=== PATIENT | female | born 1960 | race Caucasian/White ===

== ENCOUNTER → 2016-11-08 | Outpatient (CLI) | payer MEDICARE, BC ==
[~2016-11-08] MED LIST: ALLEGRA PO; AMBIEN PO; ASPIRIN PO; ASPIRIN81 M2 PO; BACTRIM DS TABL1 TA1 PO; BENADRYL25 MG PO; CENTRUM PO; CLEOCIN HCL300 M1 PO; COMPAZINE10 MG PR; CYMBALTA PO; DICYCLOMINE HCL20 MG PO; DULOXETINE HCL60 MG PO; ELOCON OINT45 GM EXT; FUROSEMIDE40 MG PO; HUMALOG KW100 UNIT/1 SUBQ; HUMALOG KW200 UNIT/1; HUMALOG100 U/ML SUBQ; HYDROCHLOROTHIA25 MG PO; HYDROXYZINE HCL25 M1 PO; HYDROXYZINE HCL50 MG PO; IBUPROFEN PO; IBUPROFEN800 MG PO; K-DUR20 ME1 PO; KCL PO; KEFLEX500 M2 PO; KLONOPIN PO; LANTUS SOL100 UNIT/1 SUBQ; LANTUS100 U/ML; LANTUS100 U/ML SUBQ; LASIX PO; LEVO-T175 MCG PO; LEVOTHYROXINE150 MCG PO; LISINOPRIL PO; LISINOPRIL10 MG PO; LYRICA PO; LYRICA75 MG PO; NEXIUM PO; ONE DAILY FOR1 EAC1 PO; PANTOPRAZOLE SO40 MG PO; PATIENT'S PHARMACY; PEPCID AC20 M2 PO; PERCOCET5/325 PO; PREDNISONE PO; PROTONIX PO; SIMVASTATIN40 MG PO; SUBOXONE 8 MG-1 EAC1 SL; SYNTHROID PO; TOPAMAX; TOPIRAMATE50 MG PO; VIBRAMYCIN100 M1 PO; VITAMIN D 2 PO; WELLBUTRIN PO; ZOCOR PO; ZOFRANODT PO
--- NOTE | ~2016-11-08 | EKG ---
PATIENT: YESY TREJO UNIT #: [id number] Ventricular Rate: 93 BPM Atrial Rate: 93 BPM P-R Interval: 146 ms QRS Duration: 98 ms Q-T Interval: 386 ms QTC Calculation(Bezet): 479 ms P [place]: 56 degrees Calculated R [place]: 58 degrees Calculated T [place]: 47 degrees Diagnosis Line: Normal sinus rhythm Diagnosis Line: Normal ECG Diagnosis Line: No previous ECGs available Diagnosis Line: Confirmed by GABRIELLA ANDERSON MD ([id number]) on 11/10/2016 Diagnosis Line: 4:22:35 PM INTERPRETING MD: JUSTIN PRATT
--- NOTE | ~2016-11-08 | CR97 ---
[facility] A Service of [facility] & [facility] RADIOLOGY TEXT RESULTS PATIENT: YESY TREJO LOCATION: [facility] : 58 UNIT #: [id number] AGE: [address]: Cricket Paige III, MD SEX: F ORDER DR: [id number] [facility] [address] [facility]. [place], [place] [address] [id number] O MR#: [id number] Acc #: [id number] NAME: YESY TREJO : 1960 SEX: F STUDY DATE/TIME: 11/08/2016 8:28 UNIT: [facility] ROOM: STUDY DESCRIPTION: CR Esophagram Attending Physician: Cricket Paige III, M.D. Referring Physician: Cricket Paige III, M.D. Ordering Physician: Cricket Paige III, M.D. Primary Care Physician: Joo Wong M.D. MEDICAL IMAGING REPORT This report is preliminary unless electronic signature is present EXAM Barium esophagram. HISTORY Obesity. Preop Lap-Band. FINDINGS Barium was used orally and under fluoroscopic control swallowing was normal. Esophagus is of normal course, caliber, mucosal pattern and distensibility. There is no hiatal hernia. CONCLUSION Normal. Dictated by... Eladio Ruiz M.D. THIS IS AN ELECTRONICALLY VERIFIED REPORT Eladio Ruiz M.D. at 11/10/2016 9:17 AM SHARMAINE/marielos TD: 11/08/2016 16:12 JOB #: [id number] MEDICAL IMAGING REPORT Page 1 of 1 COPY
--- NOTE | ~2016-11-08 | CR63 ---
[facility] A Service of [facility] RADIOLOGY TEXT RESULTS PATIENT: YESY TREJO LOCATION: [facility] : 58 UNIT #: [id number] AGE: [address]: Cricket Paige III, MD SEX: F ORDER DR: [id number] [facility] [address] [facility]. [place], [place] [address] [id number] O MR#: [id number] Acc #: [id number] NAME: YESY TREJO : 1960 SEX: F STUDY DATE/TIME: 11/08/2016 7:48 UNIT: [facility] ROOM: STUDY DESCRIPTION: CR Chest 2 View Attending Physician: Cricket Paige III, M.D. Referring Physician: Cricket Paige III, M.D. Ordering Physician: Cricket Paige III, M.D. Primary Care Physician: Joo Wong M.D. MEDICAL IMAGING REPORT This report is preliminary unless electronic signature is present EXAM Chest, 11/08/2016 HISTORY 56-year-old woman preop clearance for laparoscopic adjustable gastric band placement and possible paraesophageal hernia repair. Morbid obesity. COMPARISON 07/12/2009 FINDINGS Two-view chest demonstrates normal cardiac size and configuration. Hilar structures and mediastinal contours are preserved. Bilateral lungs are expanded and clear. IMPRESSION Negative chest. Large body habitus. Dictated by... Carlos Enrique Street M.D. THIS IS AN ELECTRONICALLY VERIFIED REPORT Carlos Enrique Street M.D. at 11/08/2016 11:15 AM Matheus TD: 11/08/2016 10:26 JOB #: [id number] MEDICAL IMAGING REPORT Page 1 of 1 COPY
[2016-11-08 09:08] LABS: HEMATOCRIT 33.2 % (35.0-45.0); HEMOGLOBIN 11.1 gm/dL (12.0-16.0); MEAN CELL VOLUME 88.5 FL (83-96); MEAN CORPUSCULAR HEMOGLOBIN 29.5 PG (28-34); MEAN CORPUSCULAR HGB CONC 33.3 g/dL (30-36); MEAN PLATELET VOLUME 8.4 FL (6.5-11.5); RED BLOOD COUNT 3.75 X10e (3.90-5.30); WHITE BLOOD COUNT 7.7 X10e3 (4.0-10.5)
[2016-11-08 09:55] LABS: BILIRUBIN,TOTAL 0.5 mg/dL (0.2-2.0); BUN/CREATININE RATIO 23.33; CALCIUM SERUM 9.3 mg/dL (8.4-10.2); CREATININE SERUM 1.2 mg/dL (0.6-1.4); GLOM FILT RATE Estimated 50.1 mL/min (>60); POTASSIUM 4.5 mmol/L (3.5-5.1); PROTEIN TOTAL SERUM 6.7 g/dL (6.0-8.3)
== END | disposition home or self-care (01) ==
LOC: CRAD 07:33 → CAMB 08:30
PROVIDERS: Surgery
DX: Z01.818 Encounter for other preprocedural examination (principal); E66.01 Morbid (severe) obesity due to excess calories
CPT/HCPCS: 36415; 71020; 74220; 80053; 80061; 84443; 85027; 93005

== ENCOUNTER → 2016-11-20 | Day surgery (SDC) | payer MEDICARE, BC ==
--- NOTE | ~2016-11-20 | CR7 ---
[facility] A Service of [facility] RADIOLOGY TEXT RESULTS PATIENT: YESY TREJO LOCATION: [facility] : 58 UNIT #: [id number] AGE: [address]: Cricket Paige III, MD SEX: F ORDER DR: [id number] [facility] [address] [facility]. [place], [place] [address] [id number] O MR#: [id number] Acc #: [id number] NAME: YESY TREJO : 1960 SEX: F STUDY DATE/TIME: 11/20/2016 10:11 UNIT: [facility] ROOM: STUDY DESCRIPTION: CR Abdomen Single AP View Attending Physician: Cricket Paige III, M.D. Referring Physician: Cricket Paige III, M.D. Ordering Physician: Cricket Paige III, M.D. Primary Care Physician: Joo Wong M.D. MEDICAL IMAGING REPORT This report is preliminary unless electronic signature is present EXAMINATION AP abdomen. DATE 11/20/2016 HISTORY Postop laparoscopic gastric band placement today. COMPARISON Acute abdominal series, 11/01/2013. FINDINGS Gastric band device has been placed, located at the expected location of the esophagogastric junction. The phi angle is approximately 56.3 degrees. Insufflation port is located just to the right of midline in the hhm-lo-rlpkj abdomen. No gross free intraperitoneal air is identified. Mild colonic stool burden with nonobstructive bowel gas pattern. Cholecystectomy clips in place. Mild linear subsegmental atelectasis in the right base. IMPRESSION Satisfactory postoperative appearance status post laparoscopic gastric band placement with phi angle of approximately 56.3 degrees. Dictated by... Domonique Arias M.D. THIS IS AN ELECTRONICALLY VERIFIED REPORT Domonique Arias M.D. at 11/21/2016 8:35 AM BRIT/bharat [facility] A Service of [facility] RADIOLOGY TEXT RESULTS PATIENT: YESY TREJO LOCATION: [facility] #: [id number] : 58 UNIT #: [id number] AGE: [address]: Cricket Paige III, MD SEX: F ORDER DR: TD: 11/20/2016 12:43 JOB #: [id number] MEDICAL IMAGING REPORT Page 1 of 1 COPY
--- NOTE | ~2016-11-20 | OR ---
Unit #: [id number] #: [id number] Patient: YESY TREJO [id number] [facility] [address] [facility]. [place], [place] [address] [id number] O MR#: [id number] NAME: YESY TREJO ROOM: Date of Procedure: 11/20/2016 Admission Date: 11/20/2016 Surgeon: Cricket Paige III, M.D. : 1960 Attending Physician: Cricket Paige III, M.D. Referring Physician: Cricket Paige III, M.D. Primary Care Physician: Joo Wong M.D. OPERATIVE REPORT PREOPERATIVE DIAGNOSIS Chronic morbid obesity. POSTOPERATIVE DIAGNOSIS Chronic morbid obesity. SECONDARY DIAGNOSIS Anterior paraesophageal hernia. PROCEDURES PERFORMED Laparoscopic adjustable gastric banding (AP standard with low-profile port) and laparoscopic paraesophageal hernia repair. TRACK CAR OPERATOR Thanh Howard M.D. SPECIMENS None. COMPLICATIONS None apparent. ESTIMATED BLOOD LOSS Minimal. ANESTHESIA General endotracheal tube anesthesia. INDICATIONS FOR PROCEDURE This is a 56-year-old lady, who has chronic morbid obesity with a BMI of 52 and associated comorbidities of sleep apnea and diabetes. She has been through the bariatric program at [facility] and understands the risks and benefits of the procedure. DESCRIPTION OF PROCEDURE After consent was obtained, including the risks and benefits of slippage, erosion, port dysfunction, and possible failure of weight loss due to noncompliance, the patient was taken to the operating room and placed in the supine position. General anesthetic was administered and the abdomen was prepped and draped in standard surgical fashion. I began by making a 2 cm incision just above and to the left of the Unit #: [id number] #: [id number] Patient: YESY TREJO umbilicus. I used a Visiport to enter the peritoneal cavity without any difficulty. C02 pneumoperitoneum was then established. Next, I placed a 5 mm port in the right upper quadrant, a 5 mm Mila liver retractor in the subxiphoid region to provide exposure of the gastroesophageal junction. Next, a 10 mm port was placed in the left upper quadrant and a 5 mm port was placed in the left lateral subcostal region. I began by performing an examination of the GE junction to evaluate for a hiatal hernia. We then scored the peritoneal attachments overlying the angle of His. I then opened up the clear space in the gastrohepatic ligament, and then using 2 blunt graspers, I identified the small fat pad crossing over the right crura. I swept the fat anterior to the crura off the crura and using the pars flaccida, I created a retrogastric tunnel where the blunt grasper exited at the angle of His. Once I had made this tunnel safely, I then inserted an Allergan AP band into the abdominal cavity. This adjustable gastric band was then place around the upper part of the stomach and fastened and buckled anteriorly. We then tacked the lateral fundus over the band to the proximal pouch with 2 interrupted 0 Ethibond sutures. I then used a third stitch to imbricate the excess anterior stomach by going from the lesser curvature up towards where the last stitch was placed. We then had excellent hemostasis. I removed the Mila liver retractor. We then removed the port tubing through the initial port incision. The rest of the ports were removed, and the pneumoperitoneum was released. I then left a small tail on the tubing. We then attached the port to the excess band tubing. We placed a piece of Prolene mesh along the back side of the port and used a Prolene stitch to anchor this mesh in place. We then trimmed the excess mesh so that just a small footprint of mesh was in place behind the port. I then inserted the tubing back into the abdominal cavity, and we placed the port into a small pocket that was made just inferior to where our initial port incision was made. The mesh was in direct contact with the fascia, and this will scar in place to hold the port in place. We then injected all the port sites with 0.25% plain Marcaine, and I reapproximated the skin edges with interrupted 4-0 Vicryl subcuticular sutures. Steri-strips were then applied. The patient tolerated the procedure without any problems and returned to the recovery room in stable condition. ADDENDUM After exposure of the GE junction, the patient was noted to have a small to medium size anterior paraesophageal hernia. I scored the phrenoesophageal ligament, reduced the hernia defect and after identifying both the right and left crura, I reapproximated the defect with an interrupted 0 Ethibond djldyp-dk-xpljg suture. I then proceeded with the case as listed above. Dictated by... Cricket Paige III, M.D. VCL/miryam TD: 11/20/2016 16:32 JOB #: [id number] Unit #: [id number] #: [id number] Patient: YESY TREJO OPERATIVE REPORT Page 1 of 1 X Cricket Paige III, MD PROCEDURE OPERATIVE NOTE
== END | disposition home or self-care (01) ==
LOC: CSUR 06:31
DX: E66.01 Morbid (severe) obesity due to excess calories (principal); K44.9 Diaphragmatic hernia without obstruction or gangrene; I25.10 Atherosclerotic heart disease of native coronary artery without angina pectoris; E11.9 Type 2 diabetes mellitus without complications; G47.30 Sleep apnea, unspecified; M17.10 Unilateral primary osteoarthritis, unspecified knee; I10 Essential (primary) hypertension; E89.0 Postprocedural hypothyroidism; K21.9 Gastro-esophageal reflux disease without esophagitis; F41.9 Anxiety disorder, unspecified; E78.00 Pure hypercholesterolemia, unspecified; M81.0 Age-related osteoporosis without current pathological fracture; F32.9 Major depressive disorder, single episode, unspecified; Z68.43 Body mass index [BMI] 50.0-59.9, adult; Z88.1 Allergy status to other antibiotic agents; Z88.2 Allergy status to sulfonamides; Z87.891 Personal history of nicotine dependence; Z79.4 Long term (current) use of insulin; Z79.82 Long term (current) use of aspirin; Z79.1 Long term (current) use of non-steroidal anti-inflammatories (NSAID); Z79.899 Other long term (current) drug therapy; Z98.51 Tubal ligation status; Z90.49 Acquired absence of other specified parts of digestive tract; Z98.890 Other specified postprocedural states
CPT/HCPCS: 74000; 82947; C1781; J0330; J1650; J1885; J2405; J3010

== ENCOUNTER 2016-12-10 11:50 | Inpatient (IN) | payer MEDICARE, BC ==
--- NOTE | ~2016-12-10 | OR ---
Unit #: [id number] #: [id number] Patient: YESY TREJO [id number] [facility]. [place], [place] [address] [id number] I MR#: [id number] NAME: YESY TREJO ROOM: 461 Date of Procedure: 12/11/2016 Admission Date: 12/10/2016 Surgeon: Quinten Sanchez M.D. : 1960 Attending Physician: Law Martinez M.D. Primary Care Physician: Joo Wong M.D. OPERATIVE REPORT PREOPERATIVE DIAGNOSIS Left femur fracture. POSTOPERATIVE DIAGNOSIS Left femur fracture. PROCEDURE PERFORMED Retrograde intramedullary rodding of left femur. MASH FILTER OPERATOR Claus. ANESTHESIA General. ESTIMATED BLOOD LOSS About 150 mL. DESCRIPTION OF PROCEDURE The patient was brought to the operating room, given a general anesthetic, and given 2 g of Ancef. She was then brought back to the operating room and given a general anesthetic. The left leg was prepped and draped in a sterile fashion. We then made an incision over the infrapatellar tendon. The subcutaneous dissected away. The tendon was split longitudinally and a straight awl was used to enter the femur under C-arm control in AP and lateral views. Once it was entered in the appropriate position, a guide june was placed up the femoral neck. We then reamed up to a 14.5, measured the guide june, was found that a 300 mm length was appropriate, so this was positioned and 13 x 300 Cullen femoral nail was placed up the femur. C-arm showed appropriate position of the hardware and the fracture. We used the distal referencing to place 2 locking screws distally under C-arm control. They were 42.5 mm in length and 85 mm in length. We then used freehand technique to place a proximal locking screw 37.5 mm in length. C-arm showed that the locking screws were in good position on AP and lateral both the distal and the proximal. The wounds were then irrigated out. The tendon was repaired with interrupted 0 Vicryl, subcu with 0 Vicryl, and the small incisions for the locking screws were closed with freddy. Sterile dressing was applied. Knee immobilizer positioned and her general anesthetic reversed. Dictated by... Unit #: [id number] #: [id number] Patient: TREJOYESY M.D. DLP/miryam TD: 12/12/2016 08:09 JOB #: [id number] OPERATIVE REPORT Page 1 of 1 X Quinten Sanchez MD PROCEDURE OPERATIVE NOTE
--- NOTE | ~2016-12-10 | BMI ---
[facility] Nutrition Therapy DATE: 12/12/16 Patient: YESY TREJO Physician: THEA Address: [address] [place] [address] Room/Bed: [address] [place] [address], Zip: [place] [address] Admit Date: 12/10/16 Date of : 58 Height: 5 0 Weight: 254 115.5 HIGH BMI NOTE: DX: 56 Y.O. FEMALE ADMITTED FOR (L) FEMUR FRACTURE ANTHROPOMETRICS: 5'0", WT: 254# (115 KG), BMI: 49.6 DIET: CC RECOMMENDATIONS: 1. RECOMMEND TO ADD HH TO CURRENT DIET ORDER ABOVE TO PROMOTE GRADUAL WEIGHT LOSS TOWARDS HEALTHY BMI (19.0-25.0) OR +/-10%IBW RD WILL F/U PER PROTOCOL Respectfully, CA DOHERTY MS, RD, LD Food and Nutritional Services [facility] cc: client file
--- NOTE | ~2016-12-10 | CR106 ---
[facility] A Service of [facility] RADIOLOGY TEXT RESULTS PATIENT: YESY TREJO LOCATION: [facility] 449-01 : 58 UNIT #: [id number] AGE: [address]: Law Martinez MD SEX: F ORDER DR: [id number] [facility] [address] [facility]. [place], [place] [address] [id number] I MR#: [id number] Acc #: [id number] NAME: YESY TREJO : 1960 SEX: F STUDY DATE/TIME: 12/10/2016 12:54 UNIT: [facility] ROOM: [facility] STUDY DESCRIPTION: CR Femur 2 Views Lt Attending Physician: Law Martinez M.D. Ordering Physician: Maximino Quevedo D.O. Primary Care Physician: Joo Wong M.D. MEDICAL IMAGING REPORT This report is preliminary unless electronic signature is present EXAM Left femur, 2 views, 12/10/2016, 1254 hours. CLINICAL HISTORY Patient stool to go the restroom today and felt a pop in femur. Unable to bear weight on left leg. COMPARISON None FINDINGS AP and lateral views of the left femur demonstrate diffuse edema and swelling. There is an oblique nondisplaced fracture in the distal femoral metaphysis which appears acute. This is best seen on the lateral view. There is advanced degenerative change at the left knee. IMPRESSION There is an oblique, acute, nondisplaced, perhaps incomplete fracture of the distal femoral metaphysis. There is edema associated in the overlying soft tissues. There is advanced degenerative change at the left knee. There is no extension into the knee joint. Dictated by... Yoselyn Garrett M.D. THIS IS AN ELECTRONICALLY VERIFIED REPORT Yoselyn Garrett M.D. at 12/11/2016 9:34 AM ALVIN/anneliese TD: 12/10/2016 18:13 JOB #: [id number] [facility] A Service [facility] RADIOLOGY TEXT RESULTS PATIENT: YESY TREJO LOCATION: [facility] 449-01 : 58 UNIT #: [id number] AGE: [address]: Law Martinez MD SEX: F ORDER DR: MEDICAL IMAGING REPORT Page 1 of 1 COPY
--- NOTE | ~2016-12-10 | CR106 ---
[facility] A Service of [facility] RADIOLOGY TEXT RESULTS PATIENT: YESY TREJO LOCATION: [facility] 449 : 58 UNIT #: [id number] AGE: [address]: Law Martinez MD SEX: F ORDER DR: [id number] [facility] [address] [facility] [place] [facility]. [place], [place] [address] [id number] I MR#: [id number] Acc #: [id number] NAME: YESY TREJO : 1960 SEX: F STUDY DATE/TIME: 12/11/2016 16:41 UNIT: B ROOM: [facility] STUDY DESCRIPTION: CR Femur 2 Views Lt Attending Physician: Law Martinez M.D. Ordering Physician: Quinten Sanchez M.D. Primary Care Physician: Joo Wong M.D. MEDICAL IMAGING REPORT This report is preliminary unless electronic signature is present EXAM Left femur series, 12/11/2016 HISTORY Left femur intramedullary rodding. Fluoroscopy time 1 minute 18 seconds. Five fluoroscopic spot images. FINDINGS Five fluoroscopic spot images obtained intraoperatively by Dr. Sanchez show patient undergoing open reduction, internal fixation distal left femoral fracture. There is an intramedullary june present. Distal fixation screws and proximal fixation screws identified. The fracture plane is oblique and involves the junction of the middle and distal thirds of the femur. Fracture fragments are in near anatomic alignment. Severe degenerative change in the incompletely visualized right knee. Dictated by... Eladio Santos M.D. THIS IS AN ELECTRONICALLY VERIFIED REPORT Eladio Santos M.D. at 12/11/2016 10:43 PM VANNESA/kedar TD: 12/11/2016 21:37 JOB #: [id number] MEDICAL IMAGING REPORT [facility] A Service [facility] RADIOLOGY TEXT RESULTS PATIENT: YESY TREJO LOCATION: [facility] 449 : 58 UNIT #: [id number] AGE: [address]: Law Martinez MD SEX: F ORDER DR: Page 1 of 1 COPY
--- NOTE | ~2016-12-10 | EKG ---
PATIENT: YESY TREJO UNIT #: [id number] Ventricular Rate: 80 BPM Atrial Rate: 80 BPM P-R Interval: 146 ms QRS Duration: 96 ms Q-T Interval: 412 ms QTC Calculation(Bezet): 475 ms P [place]: 61 degrees Calculated R [place]: 57 degrees Calculated T [place]: 46 degrees Diagnosis Line: Normal sinus rhythm with sinus arrhythmia Diagnosis Line: Normal ECG Diagnosis Line: When compared with ECG of 08-NOV-2016 08:53, Diagnosis Line: No significant change was found Diagnosis Line: Confirmed by JOSE MANUEL HARP MD ([id number]) on Diagnosis Line: 12/12/2016 10:31:13 AM INTERPRETING MD: KATIUSKA PRATT
--- NOTE | ~2016-12-10 | DS ---
Unit #: [id number] #: [id number] Patient: YESY TREJO [id number] [address] [address] [id number] I MR#: [id number] NAME: YESY TREJO ROOM: 461 Age: 56 Sex: F Admission Date: 12/10/2016 : 1960 Discharge Date: 12/13/2016 Attending Physician: Law Martinez M.D. Primary Care Physician: Joo Wong M.D. DISCHARGE SUMMARY DISCHARGE DIAGNOSES 1. Left femur fracture. 2. Diabetes mellitus. 3. Hypertension. 4. Hypothyroidism. 5. Depression. 6. Morbid obesity. 7. Status post lap band in 11/2016. 8. Obstructive sleep apnea, on CPAP. DISCHARGE MEDICATIONS 1. Lyrica 75 mg b.i.d. 2. Cymbalta 60 mg b.i.d. 3. Raven 180 mg q.a.m. 4. Zocor 40 mg daily. 5. Lisinopril 10 mg daily. 6. Levemir 36 units subcutaneous b.i.d. 7. Sliding scale insulin per protocol. 8. Aspirin 325 mg b.i.d. 9. Percocet 5/325 mg 1-2 q.4 h. p.r.n. 10. Hydroxyzine 500 mg at nighttime. 11. Bisacodyl p.r.n. constipation. 12. Senokot S b.i.d. 13. Laxative of choice. 14. Lasix 40 mg t.i.d. 15. Hydrochlorothiazide 25 mg daily. 16. Nexium 40 mg daily. 17. Potassium 20 mEq daily. 18. Levo-T 175 mcg daily. 19. Kefzol per orthopedics. HOSPITAL COURSE The patient was admitted with left femur fracture. She underwent surgery by Dr. Sanchez with a retrograde intramedullary rodding of the left femur. Home medicine were continued. She had an unremarkable postoperative course and will be discharged to rehab. Dictated by... Darvin Hood M.D. LPM/onofre Unit #: [id number] #: [id number] Patient: YESY TREJO TD: 12/13/2016 15:25 JOB #: [id number] DISCHARGE SUMMARY Page 1 of 1 X Darvin Hood MD DISCHARGE SUMMARY
--- NOTE | ~2016-12-10 | CR150 ---
[facility] A Service of [facility] RADIOLOGY TEXT RESULTS PATIENT: YESY TREJO LOCATION: B 449-01 : 58 UNIT #: [id number] AGE: [address]: Law Martinez MD SEX: F ORDER DR: [id number] [facility] [address] [facility] [place], [place] [address] [id number] I MR#: [id number] Acc #: [id number] NAME: YESY TREJO : 1960 SEX: F STUDY DATE/TIME: 12/10/2016 UNIT: [facility] ROOM: Critical [facility] hospital STUDY DESCRIPTION: CR Hip Min 2 Views Lt Attending Physician: Law Martinez M.D. Ordering Physician: Maximino Quevedo D.O. Primary Care Physician: Joo Wong M.D. MEDICAL IMAGING REPORT This report is preliminary unless electronic signature is present EXAM Left hip 2 views 12/10/2016 1258 hours. HISTORY Patient complains of left hip, mid to distal femur pain today. Patient stood to go to the restroom and felt a pop in leg. Unable to bear weight since event. COMPARISON None FINDINGS AP pelvis and frog lateral view left hip demonstrate overall normal bone density. The left hip joint is normal. The proximal left femur is normal. IMPRESSION Negative pelvis and left hip. Dictated by... Yoselyn Garrett M.D. THIS IS AN ELECTRONICALLY VERIFIED REPORT Yoselyn Garrett M.D. at 12/11/2016 9:34 AM Opal TD: 12/10/2016 18:14 JOB #: [id number] MEDICAL IMAGING REPORT Page 1 of 1 COPY
--- NOTE | ~2016-12-10 | CO ---
Unit #: [id number] #: [id number] Patient: YESY BUTLER [id number] [address] [address] [id number] I MR#: [id number] NAME: YESY BUTLER ROOM: 449 Age: 56 Sex: F Admission Date: 12/10/2016 : 1960 Attending Physician: Law Martinez M.D. Primary Care Physician: Joo Wong M.D. Consultation Date: 12/11/2016 CONSULTATION REPORT REASON FOR CONSULT Left femur fracture. HISTORY OF PRESENT ILLNESS Ms. Butler is a 56-year-old female who presents today with a left femur fracture. The patient reports she got up to go to the restroom, and her left lower extremity buckled and gave out on her. She noticed a pop in the leg. She denies any previous injury or pain in the femur. The patient reports pain today at the left thigh radiating into the knee. She reports some swelling in the leg. There is no numbness but positive weakness and instability. PAST MEDICAL HISTORY 1. Diabetes. 2. Hypertension. 3. Hypothyroidism. 4. Depression. 5. Obesity. 6. Obstructive sleep apnea. MEDICATIONS 1. Lantus. 2. Humalog. 3. Lasix. 4. Potassium. 5. Synthroid. 6. Hydrochlorothiazide. 7. Zestril. 8. Nexium. 9. Cymbalta. 10. Zocor. 11. Hydroxyzine. 12. Lyrica. 13. Aspirin. 14. Raven. ALLERGIES Sulfa and clindamycin. PAST SURGICAL HISTORY Insignificant. SOCIAL HISTORY The patient denies any smoking, alcohol or illicit drug use. Unit #: [id number] #: [id number] Patient: YESY BUTLER FAMILY HISTORY Insignificant. REVIEW OF SYSTEMS Ten organ systems reviewed. The patient denies any blurry vision, congestion, sore throat, shortness of breath, chest pain, abdominal pain, urinary incontinence, numbness, tingling, skin ulcers or lesions, anxiety, depression. Positive for joint pain. PHYSICAL EXAMINATION GENERAL: No acute distress. Alert and oriented x3. VITALS: Temp 98.3, pulse 93, respirations 18, blood pressure 112/54. HEENT: PERRLA. Nonicteric sclera. THORAX: Trachea midline. No thyromegaly. CARDIAC: S1, S2. No extra sounds. No murmurs. LUNGS: Clear to auscultation. No rales or rhonchi. ABDOMEN: Nondistended, nontender. Positive bowel sounds. : Deferred. MUSCULOSKELETAL: Positive bilateral lower extremity edema and erythema. Tenderness to palpation over the thigh. Range of motion of the knee is deferred. No bracing has been done. NEUROLOGIC: Cranial nerves II-XII intact. SKIN: Cool and dry. PSYCHIATRIC: Good insight. Good judgment. Mood and affect are pleasant. DIAGNOSTIC STUDIES LABS ON ADMISSION: White count is 8.1, hemoglobin 10.7, hematocrit 32.4, platelets 245. INR is 1. Sodium 133, potassium 3.7, chloride 99, bicarb 27, BUN 28, creatinine 1, glucose 116. IMAGING: X-rays of the left hip, AP and lateral, were ordered and reviewed in the emergency room and shows no acute abnormalities. No fracture seen. Two views of the left femur, AP and lateral, were also ordered and reviewed and shows an oblique, acute, nondisplaced, incomplete fracture at the distal femur. ASSESSMENT 1. Left femur fracture. 2. Bilateral lower extremity cellulitis. PLAN I have discussed the treatment options with the patient and the patient's family, who is at the bedside. After review of x-rays with Dr. Sanchez, I have recommended a retrograde IM nail for the left femur. The risks and benefits of the procedure were explained, as well as the description of the procedure in its entirety, along with any complications. The patient has decided to proceed. Will go ahead and get this scheduled, get the usual preoperative lab work and testing complete and have the patient medically cleared for surgery. The patient will also be started on IV antibiotics for her bilateral lower extremity cellulitis. She will remain nonweightbearing at the left lower extremity and will remain NPO for surgery scheduled this afternoon. Unit #: [id number] #: [id number] Patient: YESY BUTLER Dictated by... Yoni Ramirez for Carson Isbell/kermit TD: 12/11/2016 15:29 JOB #: [id number] CONSULTATION REPORT Page 1 of 1 X Bella Burkett CONSULTATION REPORT
--- NOTE | ~2016-12-10 | HP ---
Unit #: [id number] #: [id number] Patient: YESY TREJO [id number] [address] [place], [place] [address] [id number] I MR#: [id number] NAME: YESY TREJO ROOM: 449 Age: 56 Sex: F Admission Date: 12/10/2016 : 1960 Attending Physician: Law Martinez M.D. Primary Care Physician: Joo Wong M.D. HISTORY AND PHYSICAL CHIEF COMPLAINT I fell. HISTORY OF PRESENT ILLNESS A 56-year-old female with multiple medical problems was in her usual state of health when she got up to go to the restroom and fell. She has a femur fracture and is currently in the emergency room. Ortho is expected to see her later today. She is being admitted for pain control and orthopedic evaluation and likely surgery. She denied any dizziness, chest pain, palpitations, seizure activity, loss of consciousness or trauma other than her leg. PAST MEDICAL HISTORY Past medical history is extensive and is remarkable for diabetes, hypertension, hypothyroidism, depression, obesity, status post lap band in November of this year. She denies lung disease or heart disease. She does have a history of obstructive sleep apnea, on CPAP. She has not seen her sleep doctor for many, many years and cannot recall their name. MEDICATIONS AT HOME Per med rec sheet include: 1. Lantus insulin 72 units q.h.s. 2. Humalog 50 units t.i.d. 3. Lasix. 4. Potassium. 5. Synthroid. 6. Hydrochlorothiazide. 7. Zestril. 8. Nexium. 9. Cymbalta. 10. Zocor. 11. Hydroxyzine. 12. Lyrica. 13. Aspirin. 14. Raven. ALLERGIES Sulfa, clindamycin. SOCIAL HISTORY She does not smoke or drink. FAMILY HISTORY No familial lung disease. Unit #: [id number] #: [id number] Patient: YESY TREJO REVIEW OF SYSTEMS No shortness of breath, wheezing, chest pain, palpitations, abdominal pain, melena, hematochezia, hematuria, dysuria. No unexplained focal weakness or paresthesias. No headache, dizziness, fever, chills. She tolerates her CPAP without difficulty. She has not been evaluated in the sleep lab or by a sleep physician for many, many years. She denies any type of heart disease such as myocardial infarction, congestive heart failure, arrhythmias, etc. PHYSICAL EXAMINATION VITAL SIGNS: Examination reveals the patient is afebrile, pulse 91, respiratory rate is 18, blood pressure is 153/75, saturation is 95% on room air. Her saturations now are 99% to 100% on room air. HEENT: Pupils equal, round and reactive to light. Sclerae anicteric. Head atraumatic. NECK: Supple. No supraclavicular or cervical adenopathy appreciated. CHEST: Equal breath sounds. No wheeze, stridor, consolidation. CARDIAC: Examination reveals a regular rate and rhythm. No pathologic murmur, rub or gallop. ABDOMEN: Soft, nontender. No hepatomegaly or rebound. Morbidly obese. EXTREMITIES: Reveal no cyanosis, clubbing or edema. Left leg is wrapped. DIAGNOSTIC STUDIES IMAGING: She has not had any chest radiographs. There is no formal report on her orthopedic films but the ER doctor tells me that she has had a fracture of her leg and Ortho is to evaluate. LABORATORY: Her BUN is 30, creatinine is 0.9. INR normal. CBC normal except for a hemoglobin of 11.1. IMPRESSION 1. Leg fracture status post fall. 2. Obesity, status post lap banding. 3. Obstructive sleep apnea with stated compliance. 4. Diabetes. 5. Hypertension. 6. Hypothyroidism. 7. Depression. PLAN Admission to the hospital. Orthopedic service to see. Continue her CPAP with naps and at night with sleep. She will be kept n.p.o. for now in anticipation of possible surgery. If surgery is not performed then she will eat and be made n.p.o. Sliding scale insulin for now. Consider reevaluation in the sleep lab. Dictated by Law Martinez M.D. CLAUDIO/carlyle TD: 12/10/2016 16:47 Unit #: [id number] #: [id number] Patient: YESY TREJO JOB #: [id number] CC: Quinten Sanchez M.D. HISTORY AND PHYSICAL Page 1 of 1 X Law Martinez MD HISTORY AND PHYSICAL
--- NOTE | ~2016-12-10 | CR72 ---
[facility] A Service [facility] RADIOLOGY TEXT RESULTS PATIENT: YESY TREJO LOCATION: [facility] : 58 UNIT #: [id number] AGE: [address]: Law Martinez MD SEX: F ORDER DR: [id number] [facility] [address]. [place], [place] [address] [id number] I MR#: [id number] Acc #: [id number] NAME: YESY TREJO : 1960 SEX: F STUDY DATE/TIME: 12/10/2016 17:20 UNIT: [facility] ROOM: [facility] STUDY DESCRIPTION: CR Chest Single View Portable Attending Physician: Law Martinez M.D. Ordering Physician: Quinten Sanchez M.D. Primary Care Physician: Joo Wong M.D. MEDICAL IMAGING REPORT This report is preliminary unless electronic signature is present EXAM Chest x-ray single-view portable HISTORY Preop for surgery of a left femur fracture today. TECHNIQUE Single frontal portable view of the chest timed 17:20 on 12/10/2016 is reviewed. COMPARISON STUDIES 11/08/2016. FINDINGS Cardiac silhouette size is normal. There is no acute-appearing parenchymal infiltrate acute congestive failure, pleural effusion or pneumothorax suspected. Study somewhat limited by the patient's large habitus. IMPRESSION No active disease. Dictated by... Vernell Hager M.D. THIS IS AN ELECTRONICALLY VERIFIED REPORT Vernell Hager M.D. at 12/11/2016 8:57 AM SAC/pcl TD: 12/10/2016 22:51 JOB #: [id number] [facility] A Service [facility] RADIOLOGY TEXT RESULTS PATIENT: YESY TREJO LOCATION: [facility] : 58 UNIT #: [id number] AGE: [address]: Law Martinez MD SEX: F ORDER DR: MEDICAL IMAGING REPORT Page 1 of 1 COPY
[~2016-12-10 11:50] MED LIST changes: -HUMALOG KW100 UNIT/1 SUBQ; -LEVO-T175 MCG PO; -LISINOPRIL PO; -LYRICA75 MG PO; -PATIENT'S PHARMACY; -PERCOCET5/325 PO
[2016-12-10 13:14] LABS: BASOPHIL# 0.1 X10e3 (0-0.3); BASOPHIL% 0.6 % (0-2.5); EOSINOPHIL# 0.7 X10e3 (0-0.7); HEMATOCRIT 33.3 % (35.0-45.0); HEMOGLOBIN 11.1 gm/dL (12.0-16.0); LYMPHOCYTE# 1.1 X10e3 (1.0-3.5); LYMPHOCYTE% 11.9 % (17.0-45.0); MEAN CORPUSCULAR HEMOGLOBIN 29.6 PG (28-34); MEAN CORPUSCULAR HGB CONC 33.2 g/dL (30-36); MEAN PLATELET VOLUME 8.3 FL (6.5-11.5); MONOCYTE# 0.6 X10e3 (0-1.0); MONOCYTE% 7.3 % (3.0-12.0); NEUTROPHIL# 6.4 X10e3 (1.5-7.1); NEUTROPHIL% 72.2 % (40-75); PLATELET COUNT 242 X10e3 (140-420); RED BLOOD COUNT 3.75 X10e (3.90-5.30); RED CELL DISTRIBUTION WIDTH 12.9 % (11.0-15.5); WHITE BLOOD COUNT 8.9 X10e3 (4.0-10.5)
[2016-12-10 13:15] LABS: DIFF IND NO
[2016-12-10 13:34] LABS: PROTHROMBIN TIME (PATIENT) 10.5 SECONDS (10.0-11.7)
[2016-12-10 13:39] LABS: BUN/CREATININE RATIO 33.33; CALCIUM SERUM 9.6 mg/dL (8.4-10.2); CREATININE SERUM 0.9 mg/dL (0.6-1.4); POTASSIUM 4.1 mmol/L (3.5-5.1)
[2016-12-10] MEDS ORDERED: PATIENT'S PHARMACY (14:53)
[2016-12-10] MEDS ORDERED: LANTUS SOL100 UNIT/1 SUBQ (14:53)
[2016-12-10] MEDS ORDERED: HUMALOG KW100 UNIT/1 SUBQ (14:53)
[2016-12-10] MEDS ORDERED: KCL PO (14:54)
[2016-12-10] MEDS ORDERED: LEVO-T175 MCG PO (14:54)
[2016-12-10] MEDS ORDERED: LASIX PO (14:54)
[2016-12-10] MEDS ORDERED: HYDROCHLOROTHIA25 MG PO (14:54)
[2016-12-10] MEDS ORDERED: DULOXETINE HCL60 MG PO (14:57)
[2016-12-10] MEDS ORDERED: NEXIUM PO (14:57)
[2016-12-10] MEDS ORDERED: ZOCOR PO (14:57)
[2016-12-10] MEDS ORDERED: LISINOPRIL PO (14:57)
[2016-12-10] MEDS ORDERED: ASPIRIN81 M2 PO (14:58)
[2016-12-10] MEDS ORDERED: ALLEGRA PO (14:58)
[2016-12-10] MEDS ORDERED: HYDROXYZINE HCL50 MG PO (14:58)
[2016-12-10] MEDS ORDERED: LYRICA75 MG PO (14:58)
[2016-12-11 02:45] LABS: BASOPHIL% 0.5 % (0-2.5); EOSINOPHIL# 0.6 X10e3 (0-0.7); EOSINOPHIL% 7.4 % (0.0-7.0); HEMATOCRIT 32.4 % (35.0-45.0); HEMOGLOBIN 10.7 gm/dL (12.0-16.0); LYMPHOCYTE# 1.5 X10e3 (1.0-3.5); LYMPHOCYTE% 18.5 % (17.0-45.0); MEAN CELL VOLUME 88.5 FL (83-96); MEAN CORPUSCULAR HEMOGLOBIN 29.4 PG (28-34); MEAN CORPUSCULAR HGB CONC 33.2 g/dL (30-36); MEAN PLATELET VOLUME 8.4 FL (6.5-11.5); MONOCYTE# 0.8 X10e3 (0-1.0); MONOCYTE% 9.3 % (3.0-12.0); NEUTROPHIL# 5.2 X10e3 (1.5-7.1); NEUTROPHIL% 64.3 % (40-75); PLATELET COUNT 245 X10e3 (140-420); RED BLOOD COUNT 3.66 X10e (3.90-5.30); RED CELL DISTRIBUTION WIDTH 12.9 % (11.0-15.5); WHITE BLOOD COUNT 8.1 X10e3 (4.0-10.5)
[2016-12-11 02:46] LABS: DIFF IND NO
[2016-12-11 03:10] LABS: CALCIUM SERUM 9.3 mg/dL (8.4-10.2); GLOM FILT RATE Estimated 62.5 mL/min (>60); POTASSIUM 3.7 mmol/L (3.5-5.1)
[2016-12-12 03:56] LABS: HEMATOCRIT 31.4 % (35.0-45.0); HEMOGLOBIN 10.4 gm/dL (12.0-16.0); MEAN CELL VOLUME 89.9 FL (83-96); MEAN CORPUSCULAR HEMOGLOBIN 29.7 PG (28-34); MEAN CORPUSCULAR HGB CONC 33.1 g/dL (30-36); MEAN PLATELET VOLUME 8.8 FL (6.5-11.5); RED BLOOD COUNT 3.49 X10e (3.90-5.30); RED CELL DISTRIBUTION WIDTH 12.4 % (11.0-15.5); WHITE BLOOD COUNT 9.1 X10e3 (4.0-10.5)
[2016-12-13 02:26] LABS: HEMATOCRIT 30.8 % (35.0-45.0); HEMOGLOBIN 10.3 gm/dL (12.0-16.0); MEAN CELL VOLUME 89.4 FL (83-96); MEAN CORPUSCULAR HGB CONC 33.5 g/dL (30-36); MEAN PLATELET VOLUME 9.2 FL (6.5-11.5); RED BLOOD COUNT 3.44 X10e (3.90-5.30); RED CELL DISTRIBUTION WIDTH 12.8 % (11.0-15.5)
[2016-12-13 02:27] LABS: WHITE BLOOD COUNT 13.7 X10e3 (4.0-10.5)
[2016-12-13] MEDS ORDERED: PERCOCET5/325 PO (18:28)
== END 2016-12-13 19:35 | DRG 481 ==
LOC: CED 11:50 → C4B 14:50 → CEDOF 14:50 → CED 16:28 → CEDOF 16:35 → C4B 16:35 → C4C 12-12 14:15
PROVIDERS: Emergency Medicine; Internal Medicine; Orthopaedic Surgery
PROC: 0QSC06Z Reposition Left Lower Femur with Intramedullary Internal Fixation Device, Open Approach (ICD-10-PCS; principal; 2016-12-11 16:30)
DX: S72.92XA Unspecified fracture of left femur, initial encounter for closed fracture (principal); L03.116 Cellulitis of left lower limb; Z68.43 Body mass index [BMI] 50.0-59.9, adult; E66.01 Morbid (severe) obesity due to excess calories; I10 Essential (primary) hypertension; J98.11 Atelectasis; E11.9 Type 2 diabetes mellitus without complications; E03.9 Hypothyroidism, unspecified; F32.9 Major depressive disorder, single episode, unspecified; G47.33 Obstructive sleep apnea (adult) (pediatric); Z79.82 Long term (current) use of aspirin; Z79.4 Long term (current) use of insulin; Z88.1 Allergy status to other antibiotic agents; Z88.2 Allergy status to sulfonamides; Z98.84 Bariatric surgery status
CPT/HCPCS: 36415; 51702; 71010; 73502; 73552; 76000; 80048; 82947; 83036; 85025; 85027; 85610; 85730; 93005; 94010; 94760; 94761; 94762; 96374; 97116; 97161; 97530; 97535; 99285; C1713; G8978-GP; G8979-GP; J0131; J0690; J1100; J1170; J1815; J1885; J2270; J2405; J2550; J3010